=== PATIENT | male | born 1960 | race Caucasian/White ===

== ENCOUNTER 2018-07-09 19:25 | Inpatient (IN) | payer BC, OTHER ==
[2018-07-09] MEDS: SUCCINYLCHOLINE INJ 200 MG/10 ML VIAL (J0330) IV (19:39)
[2018-07-09] MEDS: PROPOFOL 200 MG/20 ML VIAL IV (19:55)
[2018-07-09] MEDS: PROPOFOL 1,000 MG in APPROPRIATE DILUENT 1 EA IV (19:57)
[2018-07-09 20:17] LABS: ALBUMIN 3.6 GM/DL (3.2-5.2); ALBUMIN/GLOBULIN RATIO 0.88 (1.00-1.93); ALKALINE PHOSPHATASE 165 U/L (45-117); ALT/SGPT 53 U/L (12-78); ANION GAP 15 MEQ/L (8-16); AST/SGOT 92 U/L (7-37); BILIRUBIN,DIRECT 0.5 MG/DL (0.0-0.2); BILIRUBIN,TOTAL 1.4 MG/DL (0.2-1.0); BLOOD UREA NITROGEN 9 MG/DL (7-18); CALCIUM LEVEL 8.5 MG/DL (8.8-10.2); CARBON DIOXIDE LEVEL 23 MEQ/L (21-32); CHLORIDE LEVEL 103 MEQ/L (98-107); CREATININE FOR GFR 1.12 MG/DL (0.70-1.30); ETHYL ALCOHOL (ETHANOL) < 0.003 % (0.000-0.010); GLOMERULAR FILTRATION RATE > 60.0 (>49); GLUCOSE, FASTING 199 MG/DL (70-100); POTASSIUM SERUM 4.1 MEQ/L (3.5-5.1); SODIUM LEVEL 141 MEQ/L (136-145); TOTAL PROTEIN 7.7 GM/DL (6.4-8.2)
[2018-07-09 20:21] LABS: LACTIC ACID SEPSIS PROTOCOL 6.5 MMOL/L (0.4-2.0)
[2018-07-09] MEDS ORDERED: MANNITOL 25% 12.5 GM/50 ML VIAL (J2150) As Ordered (20:22)
[2018-07-09] MEDS: levETIRAcetam INJection 1,000 MG in D5W 100 ML IV (20:32)
[2018-07-09] MEDS: MANNITOL 20% 100GM/500 ML BAG IV (20:42)
[2018-07-09 20:43] LABS: ABG BASE EXCESS 1.3 (-2.0-2.0); ABG HCO3 26.1 MEQ/L (22.0-26.0); ABG O2 SATURATION 97.3 % (95.0-99.0); ABG PARTIAL PRESSURE O2 95.3 mmHg (75.0-100.0); ABG STANDARD HCO3 25.6 MEQ/L (22.0-26.0); ABG TOTAL CO2 27.4 MEQ/L (23.0-31.0); ABG pH (ARTERIAL) 7.412 UNITS (7.350-7.450)
[2018-07-09 20:51] LABS: BASO % 0.2 % (0.0-1.0); EOS % 0.1 % (0.0-3.0); HEMATOCRIT 45.6 % (42.0-52.0); HEMOGLOBIN 15.8 g/dl (13.5-17.5); IMMATURE GRANULOCYTE % 0.4 % (0-3.0); LYMPH # 0.5 10^3/uL (1.5-4.5); MEAN CORPUSCULAR HEMOGLOBIN 36.2 pg (27.0-33.0); MEAN CORPUSCULAR HGB CONC 34.6 g/dl (32.0-36.5); MEAN CORPUSCULAR VOLUME 104.3 fl (80.0-96.0); MONO # 0.9 10^3/uL (0.0-0.8); MONO % 7.4 % (0.0-5.0); NEUTROPHILS # 10.7 10^3/uL (1.8-7.7); NEUTROPHILS % 87.9 % (36.0-66.0); RED BLOOD COUNT 4.37 10^6/uL (4.30-6.10); RED CELL DISTRIBUTION WIDTH 12.8 % (11.5-14.5); WHITE BLOOD COUNT 12.2 10^3/uL (4.0-10.0)
[2018-07-09 20:59] LABS: INR 1.26; PARTIAL THROMBOPLASTIN TIME 30.6 SECONDS (25.4-37.6)
[2018-07-09 21:21] LABS: AMPHETAMINES LEVEL URINE NEGATIVE (NEGATIVE); BARBITURATES URINE NEGATIVE (NEGATIVE); BENZODIAZEPINES URINE POSITIVE (NEGATIVE); CANNABINOIDS URINE NEGATIVE (NEGATIVE); COCAINE METABOLITE URINE NEGATIVE (NEGATIVE); METHADONE URINE NEGATIVE (NEGATIVE); OPIATES URINE NEGATIVE (NEGATIVE); PHENCYCLIDINE URINE NEGATIVE (NEGATIVE)
[2018-07-09] MEDS ORDERED: FLEET ENEMA PR (22:15)
[2018-07-09] MEDS ORDERED: HYOSCYAMINE SULFATE 0.125 MG SUBL TABLET PO (22:15)
[2018-07-09] MEDS ORDERED: ATROPINE SULFATE 1% OP SOLN 2 ML BTL SL (22:15)
[2018-07-09] MEDS ORDERED: ACETAMINOPHEN 650 MG SUPP PR (22:15)
[2018-07-09] MEDS ORDERED: SCOPOLAMINE 1MG TRANSDERMAL PATCH TOP (22:15)
[2018-07-09] MEDS ORDERED: ONDANSETRON 4MG/2ML VIAL (J2405) IV (22:15)
[2018-07-09] MEDS ORDERED: PROPOFOL 1,000 MG/100 ML VIAL As Ordered (22:54)
[2018-07-09] MEDS: MORPHINE 4 MG/ML 1ML VIAL/SYRINGE (J2270) IV (23:20)
[2018-07-10] MEDS: MORPHINE 4 MG/ML 1ML VIAL/SYRINGE (J2270) IV ×2 (00:49→01:30)
[2018-07-10] MEDS: LORazepam 2 MG/ML VIAL (J2060) IV ×4 (01:43→05:04)
[2018-07-10] MEDS: MORPHINE SULF IN 0.9% NACL 100 MG in APPROPRIATE DILUENT 1 EA IV (02:47)
== END 2018-07-10 06:40 | disposition expired | DRG 44 ==
LOC: M ED 19:25 → M ED INP 22:15 → M ICU 22:57
PROC: 0BH17EZ Insertion of Endotracheal Airway into Trachea, Via Natural or Artificial Opening (ICD-10-PCS; principal; 2018-07-09)
PROC: 5A1935Z Respiratory Ventilation, Less than 24 Consecutive Hours (ICD-10-PCS; 2018-07-09)
DX: I61.5 Nontraumatic intracerebral hemorrhage, intraventricular (principal); G93.5 Compression of brain; J96.01 Acute respiratory failure with hypoxia; R40.20 Unspecified coma; F17.210 Nicotine dependence, cigarettes, uncomplicated; Z66 Do not resuscitate; Z51.5 Encounter for palliative care